=== PATIENT | male | born 1985 | race Caucasian/White ===

== ENCOUNTER 2017-11-09 18:14 | Emergency (ER) | payer OTHER ==
[~2017-11-09] VITALS: Ht 180.3 cm; Wt 61.2 kg
[~2017-11-09 18:14] MED LIST: AMOXICILLIN 50500 MG PO; ATIVAN0.5 MG; ATIVAN0.5 MG PO; ATIVAN1 MG PO; CELEXA 20 MG TA20 M1; CELEXA10 MG; FAMOTIDINE PO; HYDROCODON-ACE1 EAC7 PO; HYDROCODON-ACE1 EACH PO; HYDROCODONE-AP1 EAC6 PO; IBUPROFEN 800800 M1 PO; IBUPROFEN 800800 MG PO; LORAZEPAM 0.50.5 M1; MEDROLDOSEPACK PO; MOBIC7.5 MG PO; NOHOMEMEDICATIONS; NORCO 5-325 TA1 EACH PO; PENICILLIN V P500 MG PO; ROBAXIN 750 MG750 M1 PO; ROBAXIN500 MG PO; TRAMADOL 50 MG50 MG PO; ULTRAM 50MG TAB50 MG PO; ZOFRAN ODT4 MG SUBLING; ZOFRAN4 MG PO
[2017-11-09 18:40] LABS: HEMATOCRIT 43.1 % (42.0-52.0); HEMOGLOBIN 14.8 gm/dL (14.0-18.0); MCH 30.9 pg (26.0-34.0); MCHC 34.4 g/dL (28.0-37.0); MPV 7.6 fl. (7.2-11.1); NUCLEATED RBCS 0 /100WBC; PLATELET COUNT* 166 thou/uL (150-400); RBC 4.78 mil/uL (4.50-6.00); RDW-CV 12.9 % (10.5-14.5); WBC 13.8 thou/uL (4.0-11.0)
[2017-11-09 18:45] LABS: CALCIUM 8.8 mg/dL (8.5-10.1)
[2017-11-09 18:50] LABS: ALBUMIN 4.1 g/dL (3.4-5.0); TOTAL BILIRUBIN 1.9 mg/dL (<0.1-1.0); TOTAL PROTEIN 7.4 g/dL (6.4-8.2)
[2017-11-09 18:55] LABS: ABSOLUTE LYMPHOCYTES 0.6 thou/uL (0.8-5.3); ABSOLUTE MONOCYTES 0.3 thou/uL (0.0-1.2); ATYPICAL LYMPHS 1 %; PLATELET ESTIMATE ADEQUATE
[2017-11-09 18:56] LABS: URINE BILIRUBIN NEGATIVE (Negative); URINE BLOOD NEGATIVE (Negative); URINE CLARITY CLEAR; URINE COLOR YELLOW; URINE GLUCOSE-RANDOM NEGATIVE (Negative); URINE KETONES 2+ (Negative); URINE LEUKOCYTES-REFLEX NEGATIVE (Negative); URINE NITRITE-REFLEX NEGATIVE (Negative); URINE PROTEIN TRACE (Negative); URINE SPECIFIC GRAVITY >= 1.030 (1.005-1.030)
[2017-11-09] MEDS ORDERED: ZOFRAN ODT4 MG PO (20:52)
[2017-11-09] MEDS ORDERED: TRAMADOL 50 MG50 MG PO (20:54)
[2017-11-09] MEDS ORDERED: DOXYCYCLINE MO100 M1 PO (20:58)
[2017-11-09 21:20] VITALS: BP 116/61
[2017-11-13 10:09] LABS: B.burgdorf.IgG Negative (()); B.burgdorf.IgM Negative (())
[2017-11-17 11:09] LABS: F. TULARENSIS IGG Negative (()); F. TULARENSIS IGM Negative (())
== END 2017-11-09 21:23 | disposition home or self-care (01) ==
LOC: M.ERS 18:14
PROVIDERS: Physician Assistant
DX: R10.31 Right lower quadrant pain (principal); E87.1 Hypo-osmolality and hyponatremia; R11.2 Nausea with vomiting, unspecified; E80.7 Disorder of bilirubin metabolism, unspecified; T63.481A Toxic effect of venom of other arthropod, accidental (unintentional), initial encounter; F41.9 Anxiety disorder, unspecified; F17.200 Nicotine dependence, unspecified, uncomplicated; Z90.49 Acquired absence of other specified parts of digestive tract; Y92.89 Other specified places as the place of occurrence of the external cause

== ENCOUNTER 2019-01-01 20:26 | Emergency (ER) | payer OTHER ==
[~2019-01-01] VITALS: Ht 180.3 cm; Wt 61.2 kg
[~2019-01-01 20:26] MED LIST changes: +DOXYCYCLINE MO100 M1 PO; +ZOFRAN ODT4 MG PO
[2019-01-01] MEDS ORDERED: NORCO 5-325 TA1 EAC1 PO (20:43)
[2019-01-01] MEDS ORDERED: PENICILLIN VK500 MG PO (20:43)
[2019-01-01 21:14] VITALS: BP 122/74
== END 2019-01-01 21:14 | disposition home or self-care (01) ==
LOC: M.ERS 20:26
DX: K04.7 Periapical abscess without sinus (principal); K08.89 Other specified disorders of teeth and supporting structures; F41.9 Anxiety disorder, unspecified; Z90.49 Acquired absence of other specified parts of digestive tract